=== PATIENT | female | born 1970 | race Caucasian/White ===

== ENCOUNTER 2019-05-19 15:07 | Emergency (ER) | payer SELFPAY ==
[~2019-05-19] VITALS: Ht 152.4 cm; Wt 92.5 kg
[2019-05-19] MEDS ORDERED: cloNIDine HCL 0.1 MG TAB PO ONE (16:15)
[2019-05-19 18:29] VITALS: BP 153/98
== END 2019-05-19 18:30 | disposition home or self-care (01) ==
LOC: ER 15:07
DX: I10 Essential (primary) hypertension (principal); R51 Headache; R42 Dizziness and giddiness
CPT/HCPCS: 70450

== ENCOUNTER 2020-04-30 23:38 | Emergency (ER) | payer SELFPAY ==
[~2020-04-30] VITALS: Ht 152.4 cm; Wt 97.1 kg
[2020-05-01 01:30] VITALS: BP 140/77
== END 2020-05-01 01:53 | disposition home or self-care (01) ==
LOC: ER 23:38
DX: H66.92 Otitis media, unspecified, left ear (principal)

== ENCOUNTER 2022-08-07 17:41 | Emergency (ER) | payer BC, OTHER ==
[~2022-08-07] VITALS: Ht 152.4 cm; Wt 97.2 kg
[2022-08-07 21:48] LABS: Urine Bacteria NONE SEEN /hpf (None Seen); Urine Blood Negative /uL (Negative); Urine Budding Yeast MODERATE /hpf (None Seen); Urine Specific Gravity 1.046 (1.001-1.035); Urine WBC 2 /hpf (0 - 5)
[2022-08-07 22:16] VITALS: BP 135/88
== END 2022-08-07 22:21 | disposition home or self-care (01) ==
LOC: ER 17:41
DX: M54.16 Radiculopathy, lumbar region (principal); I10 Essential (primary) hypertension
CPT/HCPCS: 81001

== ENCOUNTER 2023-07-21 21:01 | Inpatient (IN) | payer BC ==
[~2023-07-21] VITALS: Ht 162.6 cm; Wt 88.1 kg
[2023-07-21] MEDS ORDERED: ONDANSETRON HCL 4 MG/2 ML VIAL IV ONE (21:15)
[2023-07-21] MEDS ORDERED: MORPHINE SULFATE 4 MG/ML SYR/VIAL IV ONE (21:15)
[2023-07-21] MEDS ORDERED: NITROGLYCERIN 2% OINT 1GM PKG TD ONE (21:15)
[2023-07-21] MEDS ORDERED: HEPARIN SODIUM (PORCINE) 5000 UNITS/ML 1ML VIAL ONE (21:31)
[2023-07-21 21:36] LABS: Basophils # (auto) 0.1 10 ^3/uL (0-0.2); Basophils % (auto) 0.8 % (0.0-2.0); Eosinophils # (auto) 0.1 10 ^3/uL (0-0.8); Eosinophils % (auto) 1.1 % (0.0-7.0); Hematocrit 44.4 % (36.0-46.0); Hemoglobin 14.6 g/dL (12.2-16.2); Lymphocytes % (auto) 32.5 % (10.0-50.0); Mean Corpuscular Hemoglobin 28.1 pg (28.0-32.0); Mean Corpuscular Hgb Conc. 32.8 g/dL (32.0-36.0); Mean Corpuscular Volume 85.5 fL (80.0-100.0); Neutrophils # (auto) 7.2 10 ^3/uL (1.6-8.6); Neutrophils % (auto) 57.6 % (37.0-80.0); Nucleated Red Blood Cells % 0.1 %; Red Blood Cells 5.19 10^6/uL (4.0-5.20); Red Cell Distribution Width 15.3 % (11.8-14.3); White Blood Cell 12.4 10^3/uL (4.4-10.8)
[2023-07-21] MEDS ORDERED: METOPROLOL TARTRATE 1MG/1ML-5ML VIAL IV ONE ×2 (21:40→21:45)
[2023-07-21] MEDS ORDERED: NITROGLYCERIN 50MG/250ML 250 ML IV ONE ×2 (21:41→21:45)
[2023-07-21] MEDS ORDERED: HEPARIN SODIUM (PORCINE) 5000 UNITS/ML 1ML VIAL IV ONE (21:45)
[2023-07-21 21:50] VITALS: PULSE 94; RESP 16; O2SAT 94
[2023-07-21 21:53] LABS: Alanine Aminotransferase 41 U/L (7-40); Albumin 4.7 g/dL (3.2-4.8); Alkaline Phosphatase 78 U/L (46-116); Anion Gap 11 (5-15); Aspartate Aminotransferase 39 U/L (13-40); BUN/Creatinine Ratio 7.4 (10.0-20.0); Bilirubin, Total 0.4 mg/dL (0.2-1.0); Blood Urea Nitrogen 7 mg/dL (9-23); Calcium 10.2 mg/dL (8.5-10.1); Carbon Dioxide 23 mmol/L (20-30); Chloride 105 mmol/L (98-107); Glucose 129 mg/dL (74-106); INR 0.99 (0.9-1.15); Partial Thromboplastin Time 28.1 SEC (24.5-34.5); Potassium 3.4 mmol/L (3.5-5.1); Prothrombin Time 10.4 sec (9.3-11.8); Sodium 139 mmol/L (136-145); Total Protein 7.3 g/dL (5.7-8.2)
[2023-07-21 22:20] LABS: Urine Bacteria NONE SEEN /hpf (None Seen); Urine Blood Negative /uL (Negative); Urine Clarity HAZY (Clear); Urine Color Yellow (Yellow); Urine Protein, UAD 1+ (Negative); Urine Specific Gravity 1.017 (1.001-1.035); Urine Urobilinogen Normal (Negative); Urine WBC 6 /hpf (0 - 5)
[2023-07-21] MEDS ORDERED: IOHEXOL 350 MG/ML 100ML IJ ONE (23:39)
[2023-07-21] MEDS ORDERED: LIDOCAINE 2%HCL (LOCAL ANESTH.) INJ 20ML MDV ONE (23:39)
[2023-07-21] MEDS ORDERED: IODIXANOL 320MG/ML 100ML BTL IV ONE (23:39)
[2023-07-21] MEDS ORDERED: SODIUM CHL 0.9% 50 ML ONE (23:40)
[2023-07-21] MEDS ORDERED: MIDAZOLAM HCL 2MG/2ML 2ml VIAL (1mg/ml) ONE (23:40)
[2023-07-21] MEDS ORDERED: HEPARIN IN NS 1000Units/500mL 1,500 ML ONE (23:40)
[2023-07-21] MEDS ORDERED: fentaNYL CITRATE 100 MCG/2 ML VL ONE (23:40)
[2023-07-21] MEDS ORDERED: ANGIOMAX 250 MG VIAL IV ONE (23:40)
[2023-07-22] VITALS (12 sets, daily range): BP systolic 112–170; BP diastolic 60–107; PULSE 77–95; RESP 12–20; TEMP 97.8–98.3; O2SAT 95–98
[2023-07-22] MEDS ORDERED: LIDOCAINE 2%HCL (LOCAL ANESTH.) INJ 20ML MDV ONE (00:01)
[2023-07-22] MEDS ORDERED: IODIXANOL 320MG/ML 100ML BTL IV ONE ×2 (00:06→00:56)
[2023-07-22] MEDS ORDERED: MIDAZOLAM HCL 2MG/2ML 2ml VIAL (1mg/ml) ONE (00:55)
[2023-07-22] MEDS ORDERED: CLOPIDOGREL 300 MG TAB ONE (01:06)
[2023-07-22] MEDS ORDERED: MORPHINE SULFATE 4 MG/ML SYR/VIAL IV PRN (01:45)
[2023-07-22] MEDS ORDERED: MORPHINE SULFATE INJ 2 MG/ml SYRG IV PRN (01:45)
[2023-07-22] MEDS ORDERED: NITROGLYCERIN 0.4 MG SL TAB SL PRN ×2 (01:45)
[2023-07-22] MEDS ORDERED: ACETAMINOPHEN 500 MG TAB PO PRN (01:45)
[2023-07-22] MEDS ORDERED: LORazepam 0.5 MG TAB PO PRN (01:45)
[2023-07-22] MEDS ORDERED: ONDANSETRON HCL 4 MG/2 ML VIAL IV PRN (01:45)
[2023-07-22] MEDS ORDERED: ZOLPIDEM TARTRATE 5 MG TAB PO PRN (01:45)
[2023-07-22] MEDS ORDERED: MILK OF MAGNESIA 30ML SUSP PO ONE (01:45)
[2023-07-22] MEDS ORDERED: DEXTROSE (50%) 50ML SYRG IV PRN (02:00)
[2023-07-22] MEDS ORDERED: ASPirin-EC 81 mg tab PO ONE (02:00)
[2023-07-22] MEDS: cefTRIAXone 1GM/50ML D5W 50 ML IV SCH ×2 (02:52→09:11)
[2023-07-22 04:42] LABS: Urine Bacteria NONE SEEN /hpf (None Seen); Urine Blood TRACE /uL (Negative); Urine Clarity Clear (Clear); Urine Color Colorless (Yellow); Urine Protein, UAD TRACE (Negative); Urine Specific Gravity > 1.050 (1.001-1.035); Urine Urobilinogen Normal (Negative); Urine WBC 2 /hpf (0 - 5); Urine pH 7.5 (5.0-8.0)
[2023-07-22] MEDS ORDERED: HYDR1CAP27 PO (05:30)
[2023-07-22] MEDS ORDERED: METF-370 PO (05:30)
[2023-07-22] MEDS ORDERED: ASPI-543 PO (05:30)
[2023-07-22] MEDS ORDERED: BUSP10TA31 PO (05:30)
[2023-07-22] MEDS ORDERED: VIBE75TA PO (05:30)
[2023-07-22] MEDS ORDERED: BACL10TA PO (05:30)
[2023-07-22] MEDS ORDERED: MIN25T PO (05:30)
[2023-07-22] MEDS ORDERED: FEXO-226 PO (05:30)
[2023-07-22] MEDS ORDERED: GABA-1250 PO (05:30)
[2023-07-22] MEDS: InsuLIN REG 1unit/0.01ml Soln (100units/ml) SC SCH ×3 (05:41→17:00)
[2023-07-22] MEDS: ACCU-CHEK COMFORT CURVE STRIP VI SCH ×4 (05:41→21:23)
[2023-07-22 08:18] LABS: Hepatitis B Surface Antigen Negative (Negative)
[2023-07-22 08:39] LABS: Hepatitis C Antibody Negative (Negative)
[2023-07-22] MEDS ORDERED: CLOPIDOGREL BISULFATE 75 MG TAB PO ONE (10:00)
[2023-07-22] MEDS ORDERED: METOPROLOL TARTRATE 25 MG TAB PO ONE (10:00)
[2023-07-22] MEDS ORDERED: ATORVASTATIN 20 MG TAB PO ONE (10:00)
[2023-07-22] MEDS: GABAPENTIN 300 MG CAP PO SCH ×2 (14:04→21:22)
[2023-07-22] MEDS: HYDROcodone-ACET 5/325MG TAB PO PRN (17:07)
[2023-07-22] MEDS: METOPROLOL TARTRATE 25 MG TAB PO SCH (21:22)
[2023-07-22] MEDS ORDERED: InsuLIN REG 1unit/0.01ml Soln (100units/ml) SC SCH (22:00)
[2023-07-22] MEDS ORDERED: ATORVASTATIN 20 MG TAB PO SCH (22:00)
[2023-07-23 05:00] VITALS: BP 133/93; PULSE 83; RESP 16; TEMP 97.8; O2SAT 96
[2023-07-23] MEDS: GABAPENTIN 300 MG CAP PO SCH ×2 (05:20→13:36)
[2023-07-23] MEDS: ACCU-CHEK COMFORT CURVE STRIP VI SCH ×3 (05:31→17:32)
[2023-07-23] MEDS: InsuLIN REG 1unit/0.01ml Soln (100units/ml) SC SCH ×3 (05:31→17:32)
[2023-07-23 06:16] LABS: Alanine Aminotransferase 29 U/L (7-40); Albumin 4.1 g/dL (3.2-4.8); Alkaline Phosphatase 68 U/L (46-116); Anion Gap 7 (5-15); Aspartate Aminotransferase 35 U/L (13-40); BUN/Creatinine Ratio 9.2 (10.0-20.0); Bilirubin, Total 0.7 mg/dL (0.2-1.0); Blood Urea Nitrogen 7 mg/dL (9-23); Calcium 9.2 mg/dL (8.5-10.1); Carbon Dioxide 25 mmol/L (20-30); Chloride 108 mmol/L (98-107); Cholesterol 172 mg/dL (< 200); Glucose 91 mg/dL (74-106); HDL Cholesterol 43 mg/dL (40-59); LDL Cholesterol 117 mg/dL (< 100); Potassium 3.5 mmol/L (3.5-5.1); Sodium 140 mmol/L (136-145); Total Protein 6.5 g/dL (5.7-8.2); Triglycerides 127 mg/dL (< 150)
[2023-07-23 06:18] LABS: Basophils # (auto) 0.1 10 ^3/uL (0-0.2); Basophils % (auto) 0.8 % (0.0-2.0); Eosinophils # (auto) 0.2 10 ^3/uL (0-0.8); Eosinophils % (auto) 1.7 % (0.0-7.0); Hematocrit 39.6 % (36.0-46.0); Hemoglobin 13.3 g/dL (12.2-16.2); Lymphocytes # (auto) 2.7 10 ^3/uL (0.4-5.4); Lymphocytes % (auto) 25.7 % (10.0-50.0); Mean Corpuscular Hemoglobin 29.1 pg (28.0-32.0); Mean Corpuscular Hgb Conc. 33.7 g/dL (32.0-36.0); Mean Corpuscular Volume 86.4 fL (80.0-100.0); Monocytes # (auto) 1.1 10 ^3/uL (0-1.3); Monocytes % (auto) 10.8 % (0.0-12.0); Neutrophils # (auto) 6.3 10 ^3/uL (1.6-8.6); Red Blood Cells 4.58 10^6/uL (4.0-5.20); Red Cell Distribution Width 15.2 % (11.8-14.3); White Blood Cell 10.4 10^3/uL (4.4-10.8)
[2023-07-23 08:00] VITALS: PULSE 79
[2023-07-23] MEDS: cefTRIAXone 1GM/50ML D5W 50 ML IV SCH (08:43)
[2023-07-23] MEDS: HYDROcodone-ACET 5/325MG TAB PO PRN (08:44)
[2023-07-23] MEDS: METOPROLOL TARTRATE 25 MG TAB PO SCH (08:44)
[2023-07-23 09:00] VITALS: BP 124/89; PULSE 85; RESP 20; TEMP 98; O2SAT 91
[2023-07-23] MEDS ORDERED: CLOPIDOGREL BISULFATE 75 MG TAB PO SCH (10:00)
[2023-07-23] MEDS ORDERED: ASPirin 81 mg TAB PO SCH (10:00)
[2023-07-23] MEDS ORDERED: CLOP75TA70 PO (12:07)
[2023-07-23] MEDS ORDERED: ATOR20TA50 PO (12:07)
[2023-07-23] MEDS ORDERED: ASPI-325 PO (12:07)
[2023-07-23] MEDS ORDERED: METO25TA36 PO (12:07)
[2023-07-23 13:00] VITALS: BP 122/84; PULSE 86; RESP 18; TEMP 98.1; O2SAT 91
== END 2023-07-23 17:30 | disposition home or self-care (01) | DRG 322 ==
LOC: ER 21:01 → EDBD 21:01 → TELE 07-22 01:40 → TELE-EAST 07-22 02:30
PROVIDERS: ADMIT Specialist; ATTEND Internal Medicine
PROC: 027034Z Dilation of Coronary Artery, One Artery with Drug-eluting Intraluminal Device, Percutaneous Approach (ICD-10-PCS; principal; 2023-07-22)
PROC: 02C03ZZ Extirpation of Matter from Coronary Artery, One Artery, Percutaneous Approach (ICD-10-PCS; 2023-07-22)
PROC: 4A023N7 Measurement of Cardiac Sampling and Pressure, Left Heart, Percutaneous Approach (ICD-10-PCS; 2023-07-22)
PROC: B211YZZ Fluoroscopy of Multiple Coronary Arteries using Other Contrast (ICD-10-PCS; 2023-07-22)
PROC: B215YZZ Fluoroscopy of Left Heart using Other Contrast (ICD-10-PCS; 2023-07-22)
PROC: B241ZZ3 Ultrasonography of Multiple Coronary Arteries, Intravascular (ICD-10-PCS; 2023-07-22)
PROC: B513YZZ Fluoroscopy of Right Jugular Veins using Other Contrast (ICD-10-PCS; 2023-07-22)
DX: I21.09 ST elevation (STEMI) myocardial infarction involving other coronary artery of anterior wall (principal); E11.9 Type 2 diabetes mellitus without complications; I10 Essential (primary) hypertension; E66.01 Morbid (severe) obesity due to excess calories; E78.5 Hyperlipidemia, unspecified; F17.210 Nicotine dependence, cigarettes, uncomplicated; Z79.02 Long term (current) use of antithrombotics/antiplatelets; Z79.899 Other long term (current) drug therapy; Z90.710 Acquired absence of both cervix and uterus; Z68.33 Body mass index [BMI] 33.0-33.9, adult
CPT/HCPCS: 36415; 71045; 80053; 80061; 81001; 82962; 83036; 83735; 83880; 84443; 84484; 84702; 85025; 85610; 85730; 86803; 86850; 86900; 86901; 87340; 93005; 93306; 96374; 96375; 99152; 99153; G0378; J1815; J2250; J2405; Q9967

== ENCOUNTER 2023-09-27 18:36 | Emergency (ER) | payer BC ==
[~2023-09-27] VITALS: Ht 152.4 cm; Wt 79.0 kg
[~2023-09-27 18:36] MED LIST: ASPI-325 PO; ASPI-543 PO; ATOR20TA50 PO; BACL10TA PO; BUSP10TA31 PO; CLOP75TA70 PO; FEXO-226 PO; GABA-1250 PO; HYDR1CAP27 PO; METF-370 PO; METO25TA36 PO; MIN25T PO; VIBE75TA PO
[2023-09-27 18:54] LABS: Basophils # (auto) 0.1 10 ^3/uL (0-0.2); Basophils % (auto) 0.9 % (0.0-2.0); Eosinophils # (auto) 0.2 10 ^3/uL (0-0.8); Eosinophils % (auto) 1.6 % (0.0-7.0); Hematocrit 45.6 % (36.0-46.0); Hemoglobin 15.5 g/dL (12.2-16.2); Lymphocytes # (auto) 3.8 10 ^3/uL (0.4-5.4); Lymphocytes % (auto) 28.5 % (10.0-50.0); Mean Corpuscular Hemoglobin 28.9 pg (28.0-32.0); Mean Corpuscular Hgb Conc. 34.1 g/dL (32.0-36.0); Mean Corpuscular Volume 84.7 fL (80.0-100.0); Monocytes # (auto) 1.1 10 ^3/uL (0-1.3); Nucleated Red Blood Cells % 0.1 %; Red Blood Cells 5.38 10^6/uL (4.0-5.20); Red Cell Distribution Width 15.3 % (11.8-14.3); White Blood Cell 13.2 10^3/uL (4.4-10.8)
[2023-09-27 19:09] LABS: INR 1.03 (0.9-1.15); Partial Thromboplastin Time 28.3 SEC (24.5-34.5); Prothrombin Time 10.8 sec (9.3-11.8)
[2023-09-27 19:21] LABS: Alanine Aminotransferase 27 U/L (7-40); Albumin 4.7 g/dL (3.2-4.8); Alkaline Phosphatase 81 U/L (46-116); Anion Gap 5 (5-15); Aspartate Aminotransferase 19 U/L (13-40); Bilirubin, Total 0.3 mg/dL (0.2-1.0); Blood Urea Nitrogen 8 mg/dL (9-23); Calcium 9.9 mg/dL (8.7-10.4); Carbon Dioxide 28 mmol/L (20-30); Chloride 109 mmol/L (98-107); Glucose 83 mg/dL (74-106); Potassium 3.6 mmol/L (3.5-5.1); Sodium 142 mmol/L (136-145); Total Protein 7.4 g/dL (5.7-8.2)
[2023-09-27 19:29] LABS: Urine Bacteria NONE SEEN /hpf (None Seen); Urine Blood Negative /uL (Negative); Urine Clarity HAZY (Clear); Urine Color Colorless (Yellow); Urine Protein, UAD Negative (Negative); Urine Specific Gravity 1.017 (1.001-1.035); Urine Urobilinogen Normal (Negative); Urine WBC 2 /hpf (0 - 5); Urine pH 6.5 (5.0-8.0)
[2023-09-27 19:38] LABS: Amphetamine Screen, Urine Neg (NEGATIVE); Barbiturate Scree,Urine Neg (NEGATIVE); Benzodiazephine Screen, Urine Neg (NEGATIVE); Cocaine Screen, Urine Neg (NEGATIVE); Opiate Scree,Urine Neg (NEGATIVE); Phencyclidine Screen, Urine Neg (NEGATIVE)
[2023-09-27 19:39] LABS: Cannabinoid Screen, Urine Neg (NEGATIVE)
[2023-09-27 21:23] VITALS: BP 150/90; PULSE 90; RESP 18; TEMP 97.9; O2SAT 95
== END 2023-09-27 21:26 | disposition home or self-care (01) ==
LOC: ER 18:36
DX: R07.89 Other chest pain (principal); I10 Essential (primary) hypertension; E11.9 Type 2 diabetes mellitus without complications; E78.5 Hyperlipidemia, unspecified; I25.2 Old myocardial infarction; F17.210 Nicotine dependence, cigarettes, uncomplicated; Z98.890 Other specified postprocedural states; Z88.8 Allergy status to other drugs, medicaments and biological substances; Z79.899 Other long term (current) drug therapy
CPT/HCPCS: 36415; 71045; 80053; 80307; 81001; 83735; 83880; 84484; 85025; 85610; 85730; 93005

== ENCOUNTER 2023-10-29 17:24 | Inpatient (IN) | payer BC ==
[~2023-10-29] VITALS: Ht 152.4 cm; Wt 84.7 kg
[2023-10-29 19:14] LABS: Chloride 108 mmol/L (98-107); Potassium 2.9 mmol/L (3.5-5.1); Sodium 141 mmol/L (136-145)
[2023-10-29 19:15] LABS: Anion Gap 4 (5-15); Calcium 9.7 mg/dL (8.7-10.4); Carbon Dioxide 29 mmol/L (20-30)
[2023-10-29 19:20] LABS: BUN/Creatinine Ratio 13.6 (10.0-20.0); Blood Urea Nitrogen 11 mg/dL (9-23); Glucose 90 mg/dL (74-106)
[2023-10-29 19:21] LABS: Basophils # (auto) 0.1 10 ^3/uL (0-0.2); Eosinophils # (auto) 0.7 10 ^3/uL (0-0.8); Eosinophils % (auto) 5.4 % (0.0-7.0); Hematocrit 42.8 % (36.0-46.0); Hemoglobin 14.4 g/dL (12.2-16.2); Lymphocytes # (auto) 4.4 10 ^3/uL (0.4-5.4); Lymphocytes % (auto) 32.3 % (10.0-50.0); Mean Corpuscular Hemoglobin 28.2 pg (28.0-32.0); Mean Corpuscular Hgb Conc. 33.6 g/dL (32.0-36.0); Mean Corpuscular Volume 83.9 fL (80.0-100.0); Monocytes # (auto) 1.1 10 ^3/uL (0-1.3); Monocytes % (auto) 7.9 % (0.0-12.0); Neutrophils # (auto) 7.3 10 ^3/uL (1.6-8.6); Neutrophils % (auto) 53.4 % (37.0-80.0); Nucleated Red Blood Cells % 0.1 %; Red Cell Distribution Width 15.9 % (11.8-14.3); White Blood Cell 13.6 10^3/uL (4.4-10.8)
[2023-10-29] MEDS ORDERED: TEMAZEPAM 15 MG CAP PO PRN (20:30)
[2023-10-29] MEDS ORDERED: ONDANSETRON HCL 4 MG/2 ML VIAL IV PRN (20:30)
[2023-10-29] MEDS ORDERED: DEXTROSE (50%) 50ML SYRG IV PRN (20:30)
[2023-10-29] MEDS: ATORVASTATIN 20 MG TAB PO SCH (22:00)
[2023-10-30] MEDS: InsuLIN REG 1unit/0.01ml Soln (100units/ml) SC SCH (04:00)
[2023-10-30 04:53] VITALS: BP 117/68; PULSE 80; RESP 18; TEMP 97.8; O2SAT 100
[2023-10-30] MEDS: POTASSIUM CHL 20 Meq TABLET PO ONE ×2 (05:41→12:00)
[2023-10-30] MEDS: ACCU-CHEK COMFORT CURVE STRIP VI SCH (05:43)
[2023-10-30 07:17] LABS: Basophils # (auto) 0.1 10 ^3/uL (0-0.2); Basophils % (auto) 1.1 % (0.0-2.0); Eosinophils # (auto) 0.7 10 ^3/uL (0-0.8); Eosinophils % (auto) 6.1 % (0.0-7.0); Hematocrit 40.4 % (36.0-46.0); Hemoglobin 13.6 g/dL (12.2-16.2); Lymphocytes # (auto) 3.9 10 ^3/uL (0.4-5.4); Mean Corpuscular Hemoglobin 28.4 pg (28.0-32.0); Mean Corpuscular Hgb Conc. 33.8 g/dL (32.0-36.0); Mean Corpuscular Volume 84.3 fL (80.0-100.0); Monocytes # (auto) 1.2 10 ^3/uL (0-1.3); Monocytes % (auto) 9.8 % (0.0-12.0); Nucleated Red Blood Cells % 0.1 %; Red Cell Distribution Width 15.6 % (11.8-14.3)
[2023-10-30 07:26] LABS: Anion Gap 5 (5-15); Carbon Dioxide 30 mmol/L (20-30); Chloride 107 mmol/L (98-107); Sodium 142 mmol/L (136-145)
[2023-10-30 07:32] LABS: BUN/Creatinine Ratio 12.2 (10.0-20.0); Blood Urea Nitrogen 9 mg/dL (9-23); Glucose 87 mg/dL (74-106)
[2023-10-30 08:47] VITALS: BP 102/60; PULSE 75; RESP 19; TEMP 97.7; O2SAT 99
[2023-10-30] MEDS: MINOXIDIL 2.5 MG TAB PO SCH (09:38)
[2023-10-30] MEDS: busPIRone HCL 10 MG TAB PO SCH (09:38)
[2023-10-30] MEDS: METOPROLOL SUCCINATE XL 50 MG TAB PO SCH (09:38)
[2023-10-30] MEDS: CLOPIDOGREL BISULFATE 75 MG TAB PO SCH (09:38)
[2023-10-30] MEDS: ACETAMINOPHEN 325 MG TAB PO PRN (12:22)
[2023-10-30 12:45] VITALS: BP 108/68; PULSE 82; RESP 19; TEMP 97.8; O2SAT 97
[2023-10-30 17:00] VITALS: BP 108/56; PULSE 81; RESP 18; TEMP 98.2; O2SAT 95
[2023-10-30 21:00] VITALS: BP 116/82; PULSE 82; RESP 16; TEMP 97.6; O2SAT 97
[2023-10-31 05:00] VITALS: BP 100/53; PULSE 73; RESP 18; TEMP 97.8; O2SAT 95
[2023-10-31 07:00] LABS: Anion Gap 4 (5-15); Carbon Dioxide 28 mmol/L (20-30); Chloride 109 mmol/L (98-107); Potassium 3.6 mmol/L (3.5-5.1); Sodium 141 mmol/L (136-145)
[2023-10-31 07:02] LABS: Calcium 8.9 mg/dL (8.5-10.1)
[2023-10-31 07:06] LABS: Glucose 88 mg/dL (74-106); Triglycerides 99 mg/dL (< 150)
[2023-10-31 07:07] LABS: BUN/Creatinine Ratio 11.1 (10.0-20.0); Blood Urea Nitrogen 8 mg/dL (9-23); LDL Cholesterol 86 mg/dL (< 100)
[2023-10-31 07:08] LABS: Cholesterol 137 mg/dL (< 200); HDL Cholesterol 38 mg/dL (40-59)
[2023-10-31 07:25] LABS: Magnesium 1.9 mg/dL (1.6-2.6)
[2023-10-31 08:00] VITALS: PULSE 63; RESP 18; O2SAT 97
[2023-10-31 09:00] VITALS: BP 103/64; PULSE 63; RESP 18; TEMP 97.8; O2SAT 97
[2023-10-31 13:00] VITALS: BP 103/60; PULSE 70; RESP 18; TEMP 98.1; O2SAT 94
[2023-10-31 14:05] VITALS: BP 103/64; PULSE 63; TEMP 36.6
== END 2023-10-31 16:05 | disposition home or self-care (01) | DRG 639 ==
LOC: ER 17:24 → OVERFLOW 20:34 → WEST WING 20:34
PROVIDERS: ADMIT Nurse Practitioner; ATTEND Internal Medicine Geriatric Medicine
DX: E11.649 Type 2 diabetes mellitus with hypoglycemia without coma (principal); I25.10 Atherosclerotic heart disease of native coronary artery without angina pectoris; E78.5 Hyperlipidemia, unspecified; I10 Essential (primary) hypertension; F17.210 Nicotine dependence, cigarettes, uncomplicated; E87.6 Hypokalemia; Z88.8 Allergy status to other drugs, medicaments and biological substances; I25.2 Old myocardial infarction; Z90.49 Acquired absence of other specified parts of digestive tract; Z90.710 Acquired absence of both cervix and uterus; Z83.3 Family history of diabetes mellitus; Z95.5 Presence of coronary angioplasty implant and graft; Z84.1 Family history of disorders of kidney and ureter
CPT/HCPCS: 36415; 71045; 80048; 80061; 82962; 83735; 85025; G0378